=== PATIENT | male | born 1960 | race Caucasian/White ===

== ENCOUNTER 2018-12-21 08:00 | Day surgery (SDC) | payer BC ==
[2018-12-18 14:33] VITALS: BMI 30.4
[~2018-12-21 08:00] MED LIST: LACTATED RINGERS 1,000 ML IV SCH; LIDOCAINE 1% 20 ML VIAL (10MG/ML) FOR IV START INTRADERMA PRN
[2018-12-21 08:13] VITALS: TEMP 97.7
[2018-12-21] MEDS ORDERED: fentaNYL (PF) 50 MCG/ML 2 ML AMP ONE (09:05)
[2018-12-21] MEDS ORDERED: PROPOFOL 10 MG/ML 20 ML VIAL IV ONE (09:05)
[2018-12-21] MEDS ORDERED: MIDAZOLAM 2 MG/2 ML VIAL ONE (09:05)
--- NOTE | 2018-12-21 09:10 | P.GSHP ---
History of Present Illness H&P Date: 12/21/18 Chief Complaint: GI bleed, hemorrhoids This is a 58-year-old male who presents today for colonoscopy. Patient issues with GI bleed related to hemorrhoids. Past Medical History Past Medical History: Osteoarthritis (OA) Additional Past Medical History / Comment(s): hemorrhoid History of Any Multi-Drug Resistant Organisms: None Reported Past Surgical History: Hernia Repair, Joint Replacement Additional Past Surgical History / Comment(s): danika knee replacement, nose surgery, danika inguinal hernia repair Past Anesthesia/Blood Transfusion Reactions: No Reported Reaction Smoking Status: Never smoker - Past Family History Mother Family Medical History: No Reported History Medications and Allergies Home Medications Medication Instructions Recorded Confirmed Type No Known Home Medications 12/18/18 12/21/18 History Allergies Allergy/AdvReac Type Severity Reaction Status Date / Time No Known Allergies Allergy Verified 12/21/18 08:12 Surgical - Exam Vital Signs Temp Pulse Resp BP Pulse Ox 97.7 F 73 15 145/91 94 L 12/21/18 08:12 12/21/18 08:12 12/21/18 08:12 12/21/18 08:12 12/21/18 08:12 - General well developed, well nourished, no distress - Eyes PERRL - ENT normal pinna - Neck no masses - Respiratory normal expansion - Cardiovascular Rhythm: regular - Abdomen Abdomen: soft, non tender Assessment and Plan Assessment: GI bleed, history of hemorrhoids. We'll perform colonoscopy.
--- NOTE | 2018-12-21 09:22 | P.OP ---
Date of Procedure: 12/21/18 Preoperative Diagnosis: GI bleed Hemorrhoids Postoperative Diagnosis: External hemorrhoids Procedure(s) Performed: Colonoscopy Anesthesia: MAC Surgeon: Marvin Guzmán Pathology: none sent Condition: stable Disposition: PACU Description of Procedure: The patient's placed on the endoscopy table in the lateral position. He received IV sedation. Digital rectal exam was performed. There were external hemorrhoids noted. The flexible colonoscope was then placed patient anus passed throughout the entire colon. The ileocecal valve was visualized. The cecum, ascending and transverse colon appeared normal. The descending and sigmoid colon appeared normal. The scope was then brought back the rectum and this appeared normal. Scope was withdrawn through the anus and there were minimal internal hemorrhoids. The external hemorrhoids were photographed. There is no evidence of any active bleeding. It was presumed any GI bleed was due to hemorrhoids.
[2018-12-21 09:26] VITALS: RESP 16
[2018-12-21 09:52] VITALS: BP 91/49; PULSE 57
== END 2018-12-21 10:30 | disposition home or self-care (01) ==
LOC: ORWHC2ENDO 08:00
PROVIDERS: ATTEND Surgery
DX: K64.8 Other hemorrhoids (principal); K64.4 Residual hemorrhoidal skin tags; M19.90 Unspecified osteoarthritis, unspecified site; Z96.653 Presence of artificial knee joint, bilateral
CPT/HCPCS: 45378; J2250; J3010; J2704

== ENCOUNTER 2020-08-09 07:30 | Inpatient (IN) | payer BC ==
--- NOTE | 2020-08-09 08:11 | ED ---
Fever HPI - General Chief Complaint: Fever Stated Complaint: fever, headache, fatigue Time Seen by Provider: 08/09/20 07:44 Source: patient Mode of arrival: ambulatory Limitations: no limitations - History of Present Illness Initial Comments: 60 year male presenting for 7-10 days of fevers, general malaise, weakness. Patient states that for the past 7-10 days he has felt awful having increasing weakness and general malaise. He states he has had fevers every day. He states that a slight cough noted times sore throat he denies any chest pain or sign ificant shortness of breath he denies abdominal pain nausea vomiting. Patient has no additional complaints. Upon arrival patient appears fatigued. - Related Data Home Medications Medication Instructions Recorded Confirmed No Known Home Medications 12/18/18 12/21/18 Allergies Allergy/AdvReac Type Severity Reaction Status Date / Time No Known Allergies Allergy Verified 08/09/20 07:36 Review of Systems ROS Statement: Those systems with pertinent positive or pertinent negative responses have been documented in the HPI. ROS Other: All systems not noted in ROS Statement are negative. Past Medical History Past Medical History: Osteoarthritis (OA) Additional Past Medical History / Comment(s): hemorrhoid History of Any Multi-Drug Resistant Organisms: None Reported Past Surgical History: Hernia Repair, Joint Replacement Additional Past Surgical History / Comment(s): danika knee replacement, nose surgery, danika inguinal hernia repair Past Anesthesia/Blood Transfusion Reactions: No Reported Reaction Past Psychological History: No Psychological Hx Reported Smoking Status: Never smoker Past Alcohol Use History: None Reported Past Drug Use History: None Reported - Past Family History Mother Family Medical History: No Reported History General Exam - General Exam Comments Initial Comments: General: The patient is awake and alert, in no distress Eye: +3 mm pupils are equal, round and reactive to light, extra-ocular movements are intact. No nystagmus. There is normal conjunctiva bilaterally. No signs of icterus. Ears, nose, mouth and throat: There are moist mucous membranes and no oral lesions. Neck: The neck is supple, there is no tenderness or JVD. Cardiovascular: There is a regular rate and rhythm. No murmur, rub or gallop is appreciated. Respiratory: Respirations are non-labored, breath sounds are equal. No wheezes, stridor. Some rhonchi noted. Gastrointestinal: Soft, non-distended, non-tender abdomen without masses or organomegaly noted. There is no rebound or guarding present. Musculoskeletal: Normal ROM, no tenderness. Strength 5/5. Sensation intact. Radial and DP pulses equal bilaterally 2+. Neurological: A&O x 3. CN II-XII intact grossly, There are no obvious motor or sensory deficits. Coordination appears grossly intact. Speech is normal. Skin: Skin is warm and dry and no rashes or lesions are noted. NO LE edema, calf pain. Psychiatric: Cooperative, appropriate mood & affect, normal judgment. Limitations: no limitations Course Vital Signs 08/09/20 08/09/20 07:33 08:19 Temperature 100 F H Pulse Rate 85 95 Respiratory 16 20 Rate Blood Pressure 114/70 102/69 O2 Sat by Pulse 92 L 96 Oximetry Medical Decision Making - Medical Decision Making Labs reveal hyponatremia as well as a pattern concerning for covid 19, rapid (- ). PCR pending. Patietn CXR small area concerning for infiltrate, rocephin and azithromycin initiated. Pt will be admitted for IV hydration and monitoring. Dr. Shaffer accepted admission, evaluated patient in the ER. Dr. christina agreeable to care plan Ventricular rate 80 bpm, LA interval 124 ms, QRS ration 86 most seconds, QT/QTC 354/428 this is normal sinus with no ST elevation or depression. - Lab Data Result diagrams: 08/09/20 08:17 08/09/20 08:17 Lab Results 08/09/20 08/09/20 08/09/20 Range/Units 08:10 08:17 08:17 WBC 5.1 (3.8-10.6) k/uL RBC 4.63 (4.30-5.90) m/uL Hgb 14.3 (13.0-17.5) gm/dL Hct 40.6 (39.0-53.0) % MCV 87.7 (80.0-100.0) fL MCH 30.8 (25.0-35.0) pg MCHC 35.2 (31.0-37.0) g/dL RDW 12.6 (11.5-15.5) % Plt Count 206 (150-450) k/uL MPV 7.4 Hyperchromasia Moderate PT 10.3 (9.0-12.0) sec INR 1.0 (<1.2) APTT 27.8 (22.0-30.0) sec Sodium (137-145) mmol/L Potassium (3.5-5.1) mmol/L Chloride (98-107) mmol/L Carbon Dioxide (22-30) mmol/L Anion Gap mmol/L BUN (9-20) mg/dL Creatinine (0.66-1.25) mg/dL Est GFR (CKD-EPI)AfAm (>60 ml/min/1.73 sqM) Est GFR (CKD-EPI)NonAf (>60 ml/min/1.73 sqM) Glucose (74-99) mg/dL Plasma Lactic Acid Migel (0.7-2.0) mmol/L Calcium (8.4-10.2) mg/dL Magnesium (1.6-2.3) mg/dL Total Bilirubin (0.2-1.3) mg/dL AST (17-59) U/L ALT (4-49) U/L Alkaline Phosphatase (38-126) U/L Lactate Dehydrogenase (313-618) U/L C-Reactive Protein (<10.0) mg/L Total Protein (6.3-8.2) g/dL Albumin (3.5-5.0) g/dL Coronavirus (PCR) Not Detected (Not Detectd) 08/09/20 08/09/20 Range/Units 08:17 08:17 WBC (3.8-10.6) k/uL RBC (4.30-5.90) m/uL Hgb (13.0-17.5) gm/dL Hct (39.0-53.0) % MCV (80.0-100.0) fL MCH (25.0-35.0) pg MCHC (31.0-37.0) g/dL RDW (11.5-15.5) % Plt Count (150-450) k/uL MPV Hyperchromasia PT (9.0-12.0) sec INR (<1.2) APTT (22.0-30.0) sec Sodium 128 L (137-145) mmol/L Potassium 4.2 (3.5-5.1) mmol/L Chloride 97 L (98-107) mmol/L Carbon Dioxide 24 (22-30) mmol/L Anion Gap 7 mmol/L BUN 12 (9-20) mg/dL Creatinine 0.64 L (0.66-1.25) mg/dL Est GFR (CKD-EPI)AfAm >90 (>60 ml/min/1.73 sqM) Est GFR (CKD-EPI)NonAf >90 (>60 ml/min/1.73 sqM) Glucose 120 H (74-99) mg/dL Plasma Lactic Acid Migel 0.9 (0.7-2.0) mmol/L Calcium 8.5 (8.4-10.2) mg/dL Magnesium 1.9 (1.6-2.3) mg/dL Total Bilirubin 1.0 (0.2-1.3) mg/dL AST 48 (17-59) U/L ALT 32 (4-49) U/L Alkaline Phosphatase 56 (38-126) U/L Lactate Dehydrogenase 1094 H (313-618) U/L C-Reactive Protein 127.1 H (<10.0) mg/L Total Protein 6.1 L (6.3-8.2) g/dL Albumin 3.5 (3.5-5.0) g/dL Coronavirus (PCR) (Not Detectd) Disposition Clinical Impression: Suspected COVID-19 virus infection, Cough, Fever, Myalgia, Hyponatremia Disposition: ADMITTED IP TO THIS [facility] Condition: Stable Is patient prescribed a controlled substance at d/c from ED?: No Referrals: Rosemary Bland DO [Primary Care Provider] - 1-2 days Time of Disposition: 09:35 Decision to Admit Reason: Admit from EC Decision Date: 08/09/20 Decision Time: 09:35
--- NOTE | 2020-08-09 08:15 | XR ---
EXAMINATION TYPE: XR chest 1V portable DATE OF EXAM: 08/09/2020 COMPARISON: NONE HISTORY: Fever and cough TECHNIQUE: Single frontal view of the chest is obtained. FINDINGS: Coarsened interstitium. Aorta ectasia noted. Subsegmental changes at the left lung base pn eumothorax or pleural effusion. Osseous structures intact. IMPRESSION: 1. COPD with left basilar atelectasis versus early infiltrate
[2020-08-09] MEDS ORDERED: ACETAMINOPHEN TAB 325 MG TAB PO STA (08:30)
[2020-08-09] MEDS ORDERED: SODIUM CHLORIDE 0.9% 1,000 ML IV ONE (08:30)
[2020-08-09 08:31] LABS: Basophils % (A) 0 %; Eosinophils % (A) 1 %; HCT 40.6 % (39.0-53.0); HGB 14.3 gm/dL (13.0-17.5); Hyperchromasia Moderate; Lymphocytes # (A) 0.4 k/uL (1.0-4.8); Lymphocytes % (A) 8 %; MCH 30.8 pg (25.0-35.0); MCHC 35.2 g/dL (31.0-37.0); MCV 87.7 fL (80.0-100.0); Mean Platelet Volume 7.4; Monocytes # (A) 0.2 k/uL (0-1.0); Monocytes % (A) 4 %; Neutrophils # (A) 4.5 k/uL (1.3-7.7); Platelet Count 206 k/uL (150-450); RBC 4.63 m/uL (4.30-5.90); RDW 12.6 % (11.5-15.5); WBC 5.1 k/uL (3.8-10.6)
[2020-08-09] MEDS: SODIUM CHLORIDE 0.9% 1,000 ML IV SCH ×3 (08:38→18:21)
[2020-08-09 08:42] LABS: ALT 32 U/L (4-49); AST 48 U/L (17-59); African American GFR (CKD) >90 (>60 ml/min/1.73 sqM); Albumin 3.5 g/dL (3.5-5.0); Alkaline Phosphatase 56 U/L (38-126); Anion Gap 7 mmol/L; Blood Urea Nitrogen 12 mg/dL (9-20); Calcium 8.5 mg/dL (8.4-10.2); Carbon Dioxide 24 mmol/L (22-30); Chloride 97 mmol/L (98-107); Glucose 120 mg/dL (74-99); LDH 1094 U/L (313-618); Magnesium 1.9 mg/dL (1.6-2.3); Non-African American GFR(CKD) >90 (>60 ml/min/1.73 sqM); Potassium 4.2 mmol/L (3.5-5.1); Sodium 128 mmol/L (137-145); Total Protein 6.1 g/dL (6.3-8.2)
[2020-08-09] MEDS ORDERED: AZITHROMYCIN 500 MG in SODIUM CHLORIDE 0.9% 250 ML IVPB STA (08:46)
[2020-08-09 09:04] LABS: C Reactive Protein 127.1 mg/L (<10.0)
[2020-08-09 09:09] LABS: Partial Thromboplastin Time 27.8 sec (22.0-30.0); Prothrombin Time 10.3 sec (9.0-12.0)
[2020-08-09] MEDS ORDERED: SODIUM CHLORIDE 0.9% 500 ML 500 ML IV ONE (09:15)
[2020-08-09] MEDS ORDERED: NALOXONE 0.4 MG/ML 1 ML VIAL IV PRN (09:16)
--- NOTE | 2020-08-09 10:34 | P.HPIM ---
History of Present Illness 60 year male presenting for 7-10 days of fevers, general malaise, weakness. Patient states that for the past 7-10 days he has felt awful having increasing weakness and general malaise. He states he has had fevers every day. He states that a slight cough noted times sore throat he denies any chest pain or significant shortness of breath he denies abdominal pain nausea vomiting. Patient has no additional complaints. Upon arrival patient appears fatigued. Patient's rapid with test was negative, chest x-ray showed mild atelectasis. Patient was started on Rocephin and azithromycin which will be continued. Infectious disease will be consulted urine analysis was ordered blood cultures were obtained patient does have elevated inflammatory markers. Review of Systems REVIEW OF SYSTEMS: CONSTITUTIONAL: As mentioned in HPI HEENT: No recent visual problems or hearing problems. Denied any sore throat. CARDIOVASCULAR: No chest pain, orthopnea, PND, no palpitations, no syncope. PULMONARY: No shortness of breath, no cough, no hemoptysis. GASTROINTESTINAL: No diarrhea, no nausea, no vomiting, no abdominal pain. NEUROLOGICAL: No headaches, no weakness, no numbness. HEMATOLOGICAL: Denies any bleeding or petechiae. GENITOURINARY: Denies any burning micturition, frequency, or urgency. MUSCULOSKELETAL/RHEUMATOLOGICAL: Denies any joint pain, swelling, or any muscle pain. ENDOCRINE: Denies any polyuria or polydipsia. The rest of the 14-point review of systems is negative. Past Medical History Past Medical History: Osteoarthritis (OA) Additional Past Medical History / Comment(s): hemorrhoid History of Any Multi-Drug Resistant Organisms: None Reported Past Surgical History: Hernia Repair, Joint Replacement Additional Past Surgical History / Comment(s): danika knee replacement, nose surgery, danika inguinal hernia repair Past Anesthesia/Blood Transfusion Reactions: No Reported Reaction Past Psychological History: No Psychological Hx Reported Smoking Status: Never smoker Past Alcohol Use History: None Reported Past Drug Use History: None Reported - Past Family History Mother Family Medical History: No Reported History Medications and Allergies Home Medications Medication Instructions Recorded Confirmed Type Acetaminophen Tab [Tylenol Tab] 1,000 mg PO Q6HR PRN 08/09/20 08/09/20 History Azithromycin [Zithromax Z-pack (6 See Taper PO DAILY 08/09/20 08/09/20 History tabs)] Benzonatate [Benzonatate Perle] 200 mg PO TID PRN 08/09/20 08/09/20 History Ibuprofen [Motrin Ib] 800 mg PO Q8H PRN 08/09/20 08/09/20 History Allergies Allergy/AdvReac Type Severity Reaction Status Date / Time No Known Allergies Allergy Verified 08/09/20 09:56 Physical Exam Vitals: Vital Signs Temp Pulse Resp BP Pulse Ox 08/09/20 08:19 95 20 102/69 96 08/09/20 07:33 100 F H 85 16 114/70 92 L Intake and Output 08/08/20 08/09/20 08/09/20 22:59 06:59 14:59 Other: Weight 111.13 kg PHYSICAL EXAMINATION: GENERAL: The patient is alert and oriented x3, not in any acute distress. Well developed, well nourished. HEENT: Pupils are round and equally reacting to light. EOMI. No scleral icterus. No conjunctival pallor. Normocephalic, atraumatic. No pharyngeal erythema. No t hyromegaly. CARDIOVASCULAR: S1 and S2 present. No murmurs, rubs, or gallops. PULMONARY: Chest is clear to auscultation, no wheezing or crackles. ABDOMEN: Soft, nontender, nondistended, normoactive bowel sounds. No palpable organomegaly. MUSCULOSKELETAL: No joint swelling or deformity. EXTREMITIES: No cyanosis, clubbing, or pedal edema. NEUROLOGICAL: Gross neurological examination did not reveal any focal deficits. SKIN: No rashes. Results CBC & Chem 7: 08/09/20 08:17 08/09/20 08:17 Labs: Abnormal Lab Results - Last 24 Hours (Table) 08/09/20 08/09/20 Range/Units 08:17 08:17 Lymphocytes # 0.4 L (1.0-4.8) k/uL Sodium 128 L (137-145) mmol/L Chloride 97 L (98-107) mmol/L Creatinine 0.64 L (0.66-1.25) mg/dL Glucose 120 H (74-99) mg/dL Lactate Dehydrogenase 1094 H (313-618) U/L C-Reactive Protein 127.1 H (<10.0) mg/L Total Protein 6.1 L (6.3-8.2) g/dL Assessment and Plan Plan: Systemic inflammatory response/sepsis: Etiology is not cleared patient to home with rapid test was negative although it cannot be completely rule out will evaluate for the PCR. Patient will be continued on Rocephin and azithromycin for pneumonia will look for other causes as well elevated blood cultures and UA and urine cultures. Will also order d-dimer patient does have elevated inflammatory markers -Hyponatremia possible hypovolemic hyponatremia: Patient will continue on IV fluids Due to prophylaxis with subcutaneous heparin GI prophylaxis Pepcid
[2020-08-09] MEDS: BENZONATATE 100 MG CAP PO PRN (14:46)
[2020-08-09] MEDS: ACETAMINOPHEN TAB 500 MG TAB PO PRN ×2 (14:46→21:03)
[2020-08-09 18:14] LABS: Appearance,Urine Clear (Clear); Bilirubin,Urine Negative (Negative); Blood,Urine Negative (Negative); Color,Urine Yellow; Glucose,Urine (UA) Negative (Negative); Ketones,Urine 2+ (Negative); Leukocyte Esterase,Urine Negative (Negative); Nitrite,Urine Negative (Negative); PH, Urine 6.5 (5.0-8.0); Protein,Urine Trace (Negative); Specific Gravity,Urine 1.014 (1.001-1.035); Urobilinogen,Urine <2.0 mg/dL (<2.0)
[2020-08-09] MEDS: FAMOTIDINE 20 MG TAB PO SCH (21:03)
[2020-08-10] MEDS: ACETAMINOPHEN TAB 500 MG TAB PO PRN (03:33)
[2020-08-10] MEDS: BENZONATATE 100 MG CAP PO PRN (03:39)
--- NOTE | 2020-08-10 04:44 | CONS ---
CONSULTATION DATE OF SERVICE: 08/09/2020 REASON FOR CONSULTATION: COVID-19 infection. HISTORY OF PRESENT ILLNESS: The patient is a 60-year-old male presenting to the ER with chief complaints of fever, generalized malaise and weakness. These symptoms have been going on for almost 10 days. The patient mentioned he was initially diagnosed with COVID-19 about a week ago on Monday and did have symptoms for a week prior before he went for testing. The patient's symptoms have been increasing weakness and generalized malaise and fever on a daily basis. The patient also has a cough which is mild in intensity not bringing up any sputum. Some sore throat. Denies any chest pain. Minimal shortness of breath. No nausea, no vomiting, no diarrhea. With these symptoms, the patient was evaluated by the physician. On arrival to the ER, patient did have a low-grade fever of 100 degrees Fahrenheit. Patient was saturating 96% on room air at the time of my evaluation. He was 92% on presentation. The patient did have a normal white count, did have lymphopenia. D-dimer was 0.55. Ferritin is 1288. LDH is 1094. CRP is 127. UA is negative. Addison PCR apparently came back negative. The patient did have a chest x-ray, COPD with left basilar atelectasis versus early infiltrate. The patient has been admitted to the hospital. The patient received a dose of Rocephin and Zithromax. Infectious Disease was consulted for further management of antibiotic therapy. REVIEW OF SYSTEMS: Positive points have been mentioned in HPI. Rest of systems are negative. PAST MEDICAL HISTORY: Osteoarthritis and hemorrhoids. PAST SURGICAL HISTORY: Hernia repair and joint replacement bilateral knee. SOCIAL HISTORY: No history of smoking, drinking or drug use. FAMILY HISTORY: No pertinent findings noticed. ALLERGIES: No known drug allergies. MEDICATIONS: Medications include the patient is on Tylenol, Tessalon Perles, dexamethasone, Lovenox, Pepcid, Narcan, and IV fluid. He received a dose of Rocephin and Zithromax in the ER. PHYSICAL EXAMINATION: Blood pressure is 132/81 with a pulse of 84, temperature 100.1. He is 97% on 3 L nasal cannula. General description is a middle-aged male lying in bed in no distress. No tachypnea or accessory muscle of respiration use. HEENT EXAMINATION: No pallor or scleral icterus. Oral mucous membranes dry. NECK: Trachea central. No thyromegaly. LUNGS: Unlabored breathing, decreased intensity of breath sounds. No wheeze. HEART: S1, S2. Regular rate and rhythm. ABDOMEN: Soft, no tenderness. No guarding or rigidity. EXTREMITIES: No edema of feet. SKIN EXAMINATION: No rash or mass palpable. NEUROLOGICAL: Patient is awake, alert, oriented x3. Mood and affect normal. LABS: Hemoglobin is 14.3, white count 5.1. BUN of 12, creatinine 0.64. Elevated ferritin, LDH, CRP as well as procalcitonin. Chest x-ray with left lower lobe pneumonia. DIAGNOSTIC IMPRESSION: Patient presented to the hospital with fever, shortness of breath and cough. Apparently was diagnosed with COVID-19 about a week ago, however, COVID-19 testing came back negative this admission and the chest x-ray did not show a ground-glass opacity, which is common with COVID-19 infection with question of possible community-acquired pneumonia. PLAN: 1. We will obtain urine for Legionella antigen. 2. We will obtain sputum for Gram stain and culture sensitivity. 3. We will start the patient on Rocephin and Zithromax to cover for possible community- acquired pneumonia. 4. Continue with dexamethasone, Lovenox; however the patient is currently out of the window period for treatment or any benefit with remdesivir. 5. We will follow his clinical condition and further adjust medication if needed. Thank you for this consultation. Will follow this patient along with you. MMODL / IJN: [id number] /
[2020-08-10 08:05] LABS: Spherocytes Present
[2020-08-10 08:19] VITALS: RESP 18
[2020-08-10] MEDS ORDERED: ENOXAPARIN 40 MG/0.4 ML SYRINGE SQ SCH (09:00)
[2020-08-10] MEDS ORDERED: dexAMETHasone 2 MG TAB PO SCH (09:00)
[2020-08-10] MEDS ORDERED: AZITHROMYCIN 250 MG TAB PO SCH (09:00)
[2020-08-10 09:45] LABS: African American GFR (CKD) 119.7 (60.0-200.0); Anion Gap 7.1 mmol/L (4.00-12.00); BUN/Creat Ratio 12.86 Ratio (12.00-20.00); Calcium 7.8 mg/dL (8.7-10.3); Carbon Dioxide 23.9 mmol/L (21.6-31.8); Non-African American GFR(CKD) 103.3 (60.0-200.0); Potassium 3.7 mmol/L (3.5-5.5)
[2020-08-10] MEDS: FAMOTIDINE 20 MG TAB PO SCH (10:00)
[2020-08-10 12:22] VITALS: BP 163/85; TEMP 100.1
--- NOTE | 2020-08-10 14:43 | PN ---
PROGRESS NOTE DATE OF SERVICE: 08/11/2020 REASON FOR FOLLOWUP: COVID-19 pneumonia. INTERVAL HISTORY: Patient did have a low fever of 100.1 this morning. Patient overall feeling better. He is currently 96% on room air. The patient denies having any chest pain. He did have a cough with mild shortness of breath. No nausea, no vomiting, no abdominal pain, no diarrhea. Feeling better and wants to go home. PHYSICAL EXAMINATION: Blood pressure 152/85 with a pulse of 89, temperature 98.7, he is 96% on room air. General description is a middle-aged male, up in the bed, in no distress. RESPIRATORY SYSTEM: Unlabored breathing with no wheeze. HEART: S1, S2. Regular rate and rhythm. ABDOMEN: Soft, no tenderness. LABS: BUN of 9, creatinine 0.7. DIAGNOSTIC IMPRESSION AND PLAN: Patient with admission to the hospital with fever and cough with concern for COVID. The COVID testing remains negative. Patient seemed to have some relief from Rocephin and Zithromax and insisting on going home and consider course of Zithromax on discharge and continue supportive care. MMODL / IJN: [id number] /
[2020-08-10 14:51] VITALS: PULSE 76
--- NOTE | 2020-08-10 16:02 | P.PN ---
Subjective Progress Note Date: 08/10/20 60 year male presenting for 7-10 days of fevers, general malaise, weakness. Patient states that for the past 7-10 days he has felt awful having increasing weakness and general malaise. He states he has had fevers every day. He states that a slight cough noted times sore throat he denies any chest pain or significant shortness of breath he denies abdominal pain nausea vomiting. Patient has no additional complaints. Upon arrival patient appears fatigued. Patient's rapid with test was negative, chest x-ray showed mild atelectasis. Patient was started on Rocephin and azithromycin which will be continued. Infectious disease will be consulted urine analysis was ordered blood cultures were obtained patient does have elevated inflammatory markers. 08/10/2020 Patient is seen and evaluated in follow-up with no acute overnight issues. Patient remains on IV ceftriaxone along with Zithromax and infectious disease is following. Covid 19 testing continues to be negative although patient is mainta ined on dexamethasone and Lovenox. Patient is currently experiencing intermittent low-grade fevers at 100.1 and is on room air at 93-94%. Per nursing staff patient feels neglected and would like to go home. Review of systems: Constitutional: Reports fatigue, fever, and generalized weakness Cardiovascular: No reports of chest pain or palpitations Respiratory: rePorts intermittent shortness of breath and cough GI: No reports of nausea, vomiting, or diarrhea : No reports of dysuria or retention Neurovascular: No reports of numbness All medications have been reviewed Objective - Vital Signs Vital signs: Vital Signs Temp 100.1 F H 08/10/20 12:21 Pulse 89 08/10/20 12:21 Resp 18 08/10/20 12:21 BP 163/85 08/10/20 12:21 Pulse Ox 96 08/10/20 12:21 Intake & Output 08/09/20 08/10/20 08/10/20 18:59 06:59 18:59 Intake Total 1890 240 Balance 1890 240 Weight 111.13 kg Intake: Intake, IV Titration 390 Amount Sodium Chloride 0.9% 1, 390 000 ml @ 130 mls/hr IV . Q7H42M [facility] Rx#:[id number] Oral 1500 240 Other: Voiding Method Toilet Toilet # Voids 2 4 - Exam GENERAL: The patient is alert and oriented x3, not in any acute distress. Well developed, well nourished. HEENT: Pupils are round and equally reacting to light. EOMI. No scleral icterus. No conjunctival pallor. Normocephalic, atraumatic. No pharyngeal erythema. No thyromegaly. CARDIOVASCULAR: S1 and S2 present. No murmurs, rubs, or gallops. PULMONARY: Chest is clear to auscultation, no wheezing or crackles. ABDOMEN: Soft, nontender, nondistended, normoactive bowel sounds. No palpable organomegaly. MUSCULOSKELETAL: No joint swelling or deformity. EXTREMITIES: No cyanosis, clubbing, or pedal edema. NEUROLOGICAL: Gross neurological examination did not reveal any focal deficits. SKIN: No rashes. - Labs CBC & Chem 7: 08/09/20 08:17 08/10/20 05:27 Labs: Abnormal Lab Results - Last 24 Hours (Table) 08/09/20 08/09/20 08/09/20 Range/Units 08:17 08:17 17:35 Sodium (135-145) mmol/L Calcium (8.7-10.3) mg/dL Ferritin 1288.0 H (22.0-322.0) ng/mL Procalcitonin 0.18 H (0.02-0.09) ng/mL Urine Protein Trace H (Negative) Urine Ketones 2+ H (Negative) 08/10/20 Range/Units 05:27 Sodium 132 L (135-145) mmol/L Calcium 7.8 L (8.7-10.3) mg/dL Ferritin (22.0-322.0) ng/mL Procalcitonin (0.02-0.09) ng/mL Urine Protein (Negative) Urine Ketones (Negative) Microbiology - Last 24 Hours (Table) 08/09/20 08:52 Blood Culture - Preliminary Blood No Growth after 24 hours Assessment and Plan Assessment: -Systemic inflammatory response/sepsis: Etiology is not clear patient to home with rapid test was negative although it cannot be completely rule out will evaluate for the PCR of Covid. Patient will be continued on Rocephin and azithromycin for pneumonia will look for other causes as well elevated blood cultures and UA and urine cultures. Will also order d-dimer patient does have elevated inflammatory markers. D-dimer was 0.55 -Hyponatremia possible hypovolemic hyponatremia: Patient will continue on IV fluids, improved. Current sodium is 132 with a potassium of 3.7 -DVT prophylaxis with subcutaneous heparin -GI prophylaxis Pepcid Continue current medications. Infectious disease is following. Will continue to monitor closely and repeat a.m. labs. Further recommendations to follow. Discussed with the patient about increasing activity as tolerated. Anticipate discharge in 24 hours.
--- NOTE | 2020-08-10 16:18 | P.DS ---
Providers Date of admission: 08/09/20 09:16 Expected date of discharge: 08/10/20 Attending physician: Cristopher Shaffer Consults: 08/09/20 10:23 Consult Physician Routine Consulting Provider: Lupe Saab Consult Reason/Comments: Fever, unclear source possible covid Do you want consulting provider notified?: Yes Primary care physician: Rosemary Baugh Hospital Course: Final diagnosis -Systemic inflammatory response/sepsis: Etiology is not clear patient to home with rapid test was negative although it cannot be completely rule out will evaluate for the PCR of Covid. -Hyponatremia possible hypovolemic hyponatremia, improved -DVT prophylaxis -GI prophylaxis Discharge disposition Patient is being discharged in a stable condition with guarded prognosis to home. Patient will follow-up with Dr. Baugh in the outpatient setting upon discharge. Patient will continue on Zithromax for the next 3 days to complete the course along with dexamethasone for 5 days to complete the course. Total time taken is greater than 35 minutes. History of present illness This is a 60-year-old male who was recently admitted with fevers along with generalized malaise and weakness that had been ongoing for the last 7-10 days. 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 Test initially was negative and repeat rapid here was negative and a send out is currently pending. Infectious disease was following and patient was started on Rocephin along with azithromycin and dexamethasone. Patient did have elevated inflammatory markers. Patient is currently maintained on room air at 93-94% and denies any shortness of breath. Patient has an intermittent cough with little phlegm production. Patient has persistent ongoing home and a prescription was sent to the pharmacy and instructed to continue with antibiotics for 3 days to complete the course along with dexamethasone for 5 days to complete. She and instructed to continue to quarantine for an additional 10 days. Encourage fluids and rest and close monitoring of fever and treat with Tylenol and/or Motrin alternating. Patient verbalized understanding and would like to go home today. Currently no reports of chest pain, shortness of breath, or palpitations. Patient is afebrile. No reports of nausea or vomiting and patient is tolerating diet. On exam vital signs are stable. Temp is 98.6F, pulse is 76, respirations are 18, blood pressure is 141/81, oxygen saturation is 93-94% on room air. Cardio S1, S2 are muffled. Respiratory system shows diminished breath sounds at the bases with no wheezing or rhonchi noted. Abdomen is soft and nontender. Nervous system shows no focal deficits. Please refer to medication reconciliation sheet for a list of medications. Patient Condition at Discharge: Stable Plan - Discharge Summary Discharge Rx Participant: No New Discharge Prescriptions: New Cefuroxime Axetil [Ceftin] 500 mg PO BID 3 Days #6 tab dexAMETHasone [Hexadrol] 6 mg PO DAILY 7 Days #7 tab Azithromycin [Zithromax] 250 mg PO DAILY #6 tab Continue Ibuprofen [Motrin Ib] 800 mg PO Q8H PRN PRN Reason: Pain Or Fever > 100.5 Benzonatate [Benzonatate Perle] 200 mg PO TID PRN PRN Reason: Cough Acetaminophen Tab [Tylenol] 1,000 mg PO Q6HR PRN PRN Reason: Pain Or Fever > 100.5 Azithromycin [Zithromax Z-pack (6 tabs)] See Taper PO DAILY Discharge Medication List Acetaminophen Tab [Tylenol] 1,000 mg PO Q6HR PRN 08/09/20 [History] Azithromycin [Zithromax Z-pack (6 tabs)] See Taper PO DAILY 08/09/20 [History] Benzonatate [Benzonatate Perle] 200 mg PO TID PRN 08/09/20 [History] Ibuprofen [Motrin Ib] 800 mg PO Q8H PRN 08/09/20 [History] Azithromycin [Zithromax] 250 mg PO DAILY #6 tab 08/10/20 [Rx] Cefuroxime Axetil [Ceftin] 500 mg PO BID 3 Days #6 tab 08/10/20 [Rx] dexAMETHasone [Hexadrol] 6 mg PO DAILY 7 Days #7 tab 08/10/20 [Rx] Follow up Appointment(s)/Referral(s): Rosemary Baugh DO [Primary Care Provider] - 1-2 days Patient Instructions/Handouts: Acute Cough (GEN) Activity/Diet/Wound Care/Special Instructions: activity limited until seen by Dr. Hurst as tolerated Continue with antibiotics until finished Continue dexamethasone for 5 days Continue to monitor for fever and treat with Tylenol and/or Motrin Encourage fluids and rest Continue to quarantine for 10 days until symptom-free for 3 days Discharge Disposition: HOME SELF-CARE
--- NOTE | 2020-08-12 10:25 | CDI ---
Documentation Clarification Form Date: 08/12/20 From: Violet Kingsley CCS Phone: If you have a question about this query, please contact Martha Santos, Web Project Manager at [phone] between 8am and 5pm. Admit Date: 08/09/20 Discharge Date:08/10/20 Patient Name: Hamilton Villatoro Visit Number: [id number] ATTENTION: The Clinical Documentation Specialists (CDI) and [facility] Coding Staff appreciate your assistance in clarifying documentation. Please respond to the clarification below the line at the bottom and electronically sign. The CDI & [facility] Coding staff will review the response and follow-up if needed. Please note: Queries are made part of the Legal Health Record. If you have any questions, please contact the author of this message via ITS. Dear Dr. Hilton, Reminder per the CDC A negative result does not rule out COVID-19 and should not be used as the sole basis for treatment or patient management decisions. The COVID-19 test obtained on 08/09 was reported as Negative on 08/09 DS documents: Systemic inflammatory response/sepsis: Etiology is not clear patient to home with rapid test was negative although it cannot be completely rule out will evaluate for the PCR of Covid. Patient history/risk factors: Multiple family members tested positive, Pneumonia, Sepsis. Clinical Indicators: Sepsis, Pneumonia Patient reported fever, fatigue, shortness of breath and cough CXR: COPD with left basilar atelectasis versus early infiltrate VS in ED Triage: T: 100 , P: 85 , R 16 , Sat % 92 WBC: 5.1 Treatment: Rocephin 1 gm IV, ID consult: Patient presented to the hospital with fever, shortness of breath and cough. Apparently was diagnosed with COVID-19 about a week ago, however, COVID-19 testing came back negative this admission and the chest x-ray did not show a ground-glass opacity, which is common with COVID-19 infection with question of possible community-acquired pneumonia. Zithromax: 500 mg IVPB Hexadrol: 6 mg PO Daily In order to capture the severity of condition, please clarify the COVID-19 status: False negative, treating for COVID-19 infection COVID-19 ruled out Other, please specify Patient had Covid followed by possible postoperative pneumonia MTDD
== END 2020-08-10 16:52 | disposition home or self-care (01) | DRG 871 ==
LOC: EC 07:30 → 6NMEDSUR 09:16
PROVIDERS: ADMIT Internal Medicine; ATTEND Internal Medicine
DX: A41.89 Other specified sepsis (principal); J12.89 Other viral pneumonia; U07.1 COVID-19; E87.1 Hypo-osmolality and hyponatremia; M19.90 Unspecified osteoarthritis, unspecified site; K64.9 Unspecified hemorrhoids; D72.810 Lymphocytopenia; Z98.890 Other specified postprocedural states; Z96.653 Presence of artificial knee joint, bilateral
CPT/HCPCS: 36415; 71045; 80048; 80053; 81003; 82728; 83605; 83615; 83735; 84145; 85025; 85379; 85610; 85730; 86140; 87040; 87449; 87635; 93005; 96365; 96366; 96367; 99284